=== PATIENT | male | born 1970 | race Caucasian/White ===

== ENCOUNTER 2017-03-14 13:33 | Emergency (ER) | payer MEDICAID ==
[~2017-03-14 13:33] MED LIST: ABILIFY2 M1 PO; ALBUTEROL17 GM INH; ATARAX25 MG PO; ATENOLOL PO; ATENOLOL100 M1 PO; AUGMENTIN 875-11 TAB PO; BACTRIM; BACTRIM DS1 TA1 PO; BACTROBAN15 GM TP; COLACE100 MG PO; CYMBALTA60 MG; CYMBALTA60 MG PO; DAZIDOX10 MG PO; DESYREL300 MG PO; DOXYCYCLINE; FENTANYL1 PATCH TOP; GABAPENTIN800 M2 PO; H; HARVONI 90-4001 EACH PO; HYDROCODONE/A1 UDTA PO; HYDROMORPHONE HC8 MG PO; HYDROXYZINE HCL25 MG PO; INDOMETHACIN25 M1 PO; LAMICTAL150 M1 PO; LAMICTAL150 MG PO; LAMICTAL200 M2 PO; LAMICTAL25 MG PO; LEXAPRO PO; LEXAPRO20 M2 PO; LISINOPRIL20 M1 PO; LORADAMED10 M1 PO; LORTAB 10/5001 EA PO; LORTAB 7.5/5001 EA PO; LORTAB 7.5/5001 TAB; LORTAB 7.5/5001 TAB PO; LYRICA100 MG; LYRICA150 MG PO; MELOXICAM7.5 MG PO; METHADONE HCL5 M2 PO; MIRALAX17 G1 PO; MOBIC7.5 MG; MOBIC7.5 MG PO; MONTELUKAST SOD10 M2 PO; MORPHINE SULFAT60 M1 PO; MS CONTIN100 MG PO; MULTIVITAMINS1 EAC6 PO; NAPROXEN500 MG; NICODERM14 MG/PAT1 TD; NORCO 5/325 TAB1 TAB PO; OMEPRAZOLE20 M1 PO; OMEPRAZOLE20 M3 PO; OMEPRAZOLE40 MG PO; OXYCONTIN20 MG; OXYCONTIN20 MG PO; OXYCONTIN30 MG; OXYCONTIN40 M1 PO; OXYCONTIN40 MG PO; PEN-VEE K500 MG PO; PRILOSEC40 MG; PRILOSEC40 MG PO; PROTONIX40 MG; ROZEREM8 M1 PO; SAVELLA100 M1 PO; SEROQUEL100 MG; TAMSULOSIN HCL0.4 M1 PO; TOPAMAX100 MG PO; TRAZODONE HCL100 MG PO; TRAZODONE50 MG PO; ULTRAM50 MG PO; VITAMIN D31000 UNI4 PO; WELLBUTRIN XL150 MG; WELLBUTRIN XL300 MG; WELLBUTRIN XL300 MG PO; XANAX2 MG PO; ZANAFLEX2 M PO; ZANAFLEX6 MG; ZANAFLEX6 MG PO
[2017-03-14] MEDS ORDERED: PERCOCET 5-3251 EACH PO (17:41)
== END 2017-03-14 17:50 ==
LOC: EDMED 13:33
DX: S80.01XA Contusion of right knee, initial encounter (principal); I10 Essential (primary) hypertension; F32.9 Major depressive disorder, single episode, unspecified; Z87.891 Personal history of nicotine dependence; X58.XXXA Exposure to other specified factors, initial encounter